=== PATIENT | male | born 1985 | race African-American/Black ===

== ENCOUNTER 2019-11-29 16:33 | Emergency (ER) | payer OTHER, SELFPAY ==
--- NOTE | ~2019-11-29 | XR_ITS ---
XR forearm RT 2V, XR hand RT min 3V 11/29/2019 17:09 Indication: Right hand and forearm pain after injury. Lacerations. Procedure: 2 views right forearm and 3 views right hand Comparison: No prior studies for comparison. Findings: No acute fracture, subluxation or dislocation. There is soft tissue laceration adjacent to the [place] aspect of the radius ventrally. No foreign body is identified. Impression: 1: No acute bone or joint abnormality. Reviewed, dictated and finalized at location A. Impression: 1: No acute bone or joint abnormality. Impression: 1: No acute bone or joint abnormality.
[2019-11-29 16:45] VITALS: BP 123/82; PULSE 92; RESP 16; TEMP 36.4; O2SAT 97
--- NOTE | 2019-11-29 16:53 | ED.GENADULT ---
HPI - General Adult General Chief complaint: Wound/Laceration Stated complaint: laceration Time Seen by Provider: 11/29/19 16:46 Source: patient and RN notes reviewed Mode of arrival: ambulatory Limitations: no limitations History of Present Illness HPI narrative: Patient presents today complaining of an injury to his right hand, wrist, and forearm. At approximately 3 to 4:00 AM, he punched through a glass window, causing a laceration to his forearm, and swelling and pain to the hand. His wounds were subsequently dressed by paramedics, but patient declined ER transfer at that time. Patient has been celebrating his birthday for the last 2 days and states he has had a lot of alcohol to drink today. Currently rates his pain 8/10. He is up-to-date on his tetanus vaccine. Reports he is unable to move his fingers or wrist MD complaint: Right arm and hand injury Related Data Home Medications Medication Instructions Recorded Confirmed No Home Medications 11/29/19 11/29/19 Allergies Allergy/AdvReac Type Severity Reaction Status Date / Time No Known Allergies Allergy Verified 11/29/19 16:48 Review of Systems Review of Systems: Narrative: CONSTITUTIONAL: Denies body aches, fever, chills, or sweats. EYES: Denies visual changes, redness, or discharge. ENT: Denies rhinorrhea, congestion, sore throat, or otalgia. CARDIOVASCULAR: Denies chest pain, palpitations, or edema. RESPIRATORY: Denies cough or dyspnea. GASTROINTESTINAL: Denies abdominal pain, nausea, vomiting, or diarrhea. GENITOURINARY: Denies dysuria or hematuria. SKIN: Denies rash, itching. + Right forearm laceration MUSCULOSKELETAL: Denies back pain. + Right forearm, wrist, and hand injury NEUROLOGIC: Denies headache, numbness, tingling, or weakness. PSYCH: Denies depression or anxiety. PMFSH Comments At time of signature, I have reviewed and agree with nursing past medical, surgical, social and family history unless otherwise noted. Please see nursing chart for further information. There is no relevant family history pertinent to the presenting complaint Exam Narrative: Exam Narrative: GENERAL: well-nourished, and in no acute distress. Patient does seem intoxicated, but answers all questions appropriately. HEAD: Normocephalic, atraumatic. EYES: EOMI. Eyes are bloodshot. No drainage. Conjunctivae normal. ENT: Mucous membranes pink and moist. NECK: Normal AROM. Supple. No lymphadenopathy. CHEST: No respiratory distress. EXTREMITIES: Right hand: Moderate edema. Tenderness to fingers 2 through 4 as well as metacarpals 2 through 4. Patient is able to move all fingers slightly, but it seems this is most likely due to pain and swelling. Distal sensation intact. Capillary refill normal. Radial pulse normal. Tenderness to the distal radius and ulna. Patient refuses to perform range of motion of the wrist. 3 1 cm partial thickness linear lacerations to the posterior forearm. Still has some scant active bleeding. SKIN: Warm, dry, no rash. Capillary refill normal. Normal skin turgor. NEURO: No focal deficits. Alert and oriented x3. Gait steady. PSYCH: Normal affect. No signs of depression or anxiety. Course Course Emergency Course: 1750- Patient's ride left the parking lot ~20 mins ago. Patient does not have a cell phone with him and doesn't have any numbers memorized to call. Will await their return. Patient resting comfortably in room 1. Vital Signs Vital signs: Vital Signs Temperature 97.5 F L 11/29/19 16:45 Pulse Rate 92 11/29/19 16:45 Respiratory Rate 16 11/29/19 16:45 Blood Pressure 123/82 11/29/19 16:45 Pulse Oximetry 97 11/29/19 16:45 Temperature 97.5 F L 11/29/19 16:45 Pulse Rate 92 11/29/19 16:45 Respiratory Rate 16 11/29/19 16:45 Blood Pressure 123/82 11/29/19 16:45 Pulse Oximetry 97 11/29/19 16:45 Reviewed. Pt has been instructed to follow up with his PCP regarding his elevated blood pressure today.
--- NOTE | 2019-11-29 17:52 | PC.NURSE ---
1715-- pt sleeping at present, and had to arouse pt with a sternal rub and loudly calling me, pt was able to wake and then walk to xray, we offered a wheelchair, and pt declined. 1723- pt ambulatory back from xray, and back into room 1. pt laying on stretcher. 1728- dressing placed over wounds. explained to pt that wounds were too old to close. dressing consists of telfa over the wounds and bulky 4x4 and tara covering. pt informed that nothing is broken. pt nodded head with acknowledgement. 1732-- pt ready for discharge at present, pt sleeping again at present, awakened with a few sternal rubs and loudly saying his name, asked if he could call his friends that were here but dropped him off, and pt states that kirti will be back . pt did not give us any phone numbers to call to get him a ride home. pt immediately fell back asleep.
== END 2019-11-29 18:03 | disposition home or self-care (01) ==
PROVIDERS: Emergency Provider Nurse Practitioner
DX: S51.811A Laceration without foreign body of right forearm, initial encounter (principal); S60.221A Contusion of right hand, initial encounter; R03.0 Elevated blood-pressure reading, without diagnosis of hypertension; W25.XXXA Contact with sharp glass, initial encounter
CPT/HCPCS: 73090; 73130; 99213; G0463